=== PATIENT | female | born 1985 | race Two or more races ===

== ENCOUNTER 2018-02-24 20:06 | Emergency (ER) | payer OTHER ==
[~2018-02-24] VITALS: Ht 160 cm; Wt 59.0 kg
[2018-02-24] MEDS ORDERED: PRENATABS FA T1 EACH (20:12)
[2018-02-24] MEDS ORDERED: FOLIC ACID0.4 MG (20:12)
== END 2018-02-24 23:53 | disposition home or self-care (01) ==
LOC: ER 20:06
DX: O20.8 Other hemorrhage in early pregnancy (principal); Z34.81 Encounter for supervision of other normal pregnancy, first trimester

== ENCOUNTER 2018-03-04 01:58 | Emergency (ER) | payer OTHER ==
[~2018-03-04] VITALS: Ht 160 cm; Wt 61.2 kg
[~2018-03-04 01:58] MED LIST: FOLIC ACID0.4 MG; PRENATABS FA T1 EACH
== END 2018-03-04 14:28 | disposition home or self-care (01) ==
LOC: ER 01:58
DX: O20.8 Other hemorrhage in early pregnancy (principal); Z34.01 Encounter for supervision of normal first pregnancy, first trimester

== ENCOUNTER 2018-05-31 12:23 | Emergency (ER) | payer OTHER ==
[~2018-05-31] VITALS: Ht 160 cm; Wt 59.9 kg
== END 2018-05-31 15:40 | disposition home or self-care (01) ==
LOC: ER 12:23
DX: O20.0 Threatened abortion (principal)

== ENCOUNTER 2018-06-20 20:40 | Emergency (ER) | payer OTHER ==
[~2018-06-20] VITALS: Ht 160 cm; Wt 65.8 kg
[2018-06-20] MEDS ORDERED: PROGESTERONE100 MG (21:12)
[2018-06-21] MEDS ORDERED: INTESTINEX680 M1 PO (04:04)
[2018-06-21] MEDS ORDERED: PEPCID AC20 MG PO (04:04)
== END 2018-06-21 04:52 | disposition home or self-care (01) ==
LOC: ER 20:40
DX: O20.0 Threatened abortion (principal); O26.891 Other specified pregnancy related conditions, first trimester; K52.9 Noninfective gastroenteritis and colitis, unspecified; Z34.81 Encounter for supervision of other normal pregnancy, first trimester

== ENCOUNTER 2019-01-01 20:29 | Outpatient (CLI) | payer OTHER ==
[~2019-01-01 20:29] MED LIST changes: +INTESTINEX680 M1 PO; +PEPCID AC20 MG PO; +PROGESTERONE100 MG
[2019-01-01] MEDS ORDERED: HIERRO PO (22:46)
== END 2019-01-02 13:14 | disposition home or self-care (01) ==
LOC: OBS/DEL 20:29
DX: O26.893 Other specified pregnancy related conditions, third trimester (principal); R42 Dizziness and giddiness

== ENCOUNTER 2019-01-06 13:23 | Outpatient (CLI) | payer OTHER ==
[~2019-01-06 13:23] MED LIST changes: +HIERRO PO
== END 2019-01-06 21:28 | disposition home or self-care (01) ==
LOC: OBS/DEL 13:23
DX: O26.893 Other specified pregnancy related conditions, third trimester (principal); R42 Dizziness and giddiness; R11.2 Nausea with vomiting, unspecified

== ENCOUNTER 2019-01-13 10:45 | Inpatient (IN) | payer OTHER ==
[~2019-01-13] VITALS: Ht 160 cm; Wt 2.7 kg
[2019-01-20] MEDS ORDERED: IRON236 MG (08:01)
== END 2019-01-22 13:05 | disposition home or self-care (01) | DRG 788 ==
LOC: O/R 10:45 → SURH 10:45 → O/R 01-20 06:25 → OB/GYN 01-20 06:25
PROVIDERS: ADMIT Obstetrics & Gynecology
PROC: 4A1HXCZ Monitoring of Products of Conception, Cardiac Rate, External Approach (ICD-10-PCS; 2019-01-20)
PROC: 4A033R1 Measurement of Arterial Saturation, Peripheral, Percutaneous Approach (ICD-10-PCS; 2019-01-20)
PROC: 10D00Z1 Extraction of Products of Conception, Low, Open Approach (ICD-10-PCS; principal; 2019-01-20 09:30)
DX: O82 Encounter for cesarean delivery without indication (principal); O34.211 Maternal care for low transverse scar from previous cesarean delivery; Z3A.39 39 weeks gestation of pregnancy; Z37.0 Single live birth

== ENCOUNTER 2021-04-09 12:17 | Emergency (ER) | payer OTHER ==
[~2021-04-09] VITALS: Ht 160 cm; Wt 75.3 kg
[~2021-04-09 12:17] MED LIST changes: +IRON236 MG
[2021-04-09] MEDS ORDERED: MAGNESIUM200 MG (12:34)
== END 2021-04-09 16:30 | disposition home or self-care (01) ==
LOC: ER 12:17
DX: B34.9 Viral infection, unspecified (principal); Z20.822 Contact with and (suspected) exposure to COVID-19

== ENCOUNTER 2021-06-01 12:30 | Inpatient (IN) | payer OTHER ==
[~2021-06-01] VITALS: Ht 160 cm; Wt 2187.0 kg
[~2021-06-01 12:30] MED LIST changes: +MAGNESIUM200 MG
== END 2021-06-08 14:01 | disposition home or self-care (01) | DRG 785 ==
LOC: OB/GYN 06-05 17:48 → LDR 06-05 17:48 → OB/GYN 06-05 22:36 → LDR 06-06 07:00 → OB/GYN 06-08 14:01
PROVIDERS: ADMIT Obstetrics & Gynecology; ATTEND Obstetrics & Gynecology
PROC: 0UB70ZZ Excision of Bilateral Fallopian Tubes, Open Approach (ICD-10-PCS; 2021-06-05)
PROC: 4A1HXCZ Monitoring of Products of Conception, Cardiac Rate, External Approach (ICD-10-PCS; 2021-06-05)
PROC: 10D00Z1 Extraction of Products of Conception, Low, Open Approach (ICD-10-PCS; principal; 2021-06-05 20:15)
DX: O34.211 Maternal care for low transverse scar from previous cesarean delivery (principal); O36.5930 Maternal care for other known or suspected poor fetal growth, third trimester, not applicable or unspecified; Z20.822 Contact with and (suspected) exposure to COVID-19; Z3A.37 37 weeks gestation of pregnancy; Z37.0 Single live birth; Z30.2 Encounter for sterilization